=== PATIENT | female | born 1985 | race Caucasian/White ===

== ENCOUNTER 2016-06-22 17:47 | Emergency (ER) | payer SELFPAY ==
[2016-06-22 19:02] VITALS: RESP 18; O2SAT 100
[2016-06-22] MEDS ORDERED: Sodium Chloride 0.9% 1,000 ML IV ONE (20:51)
[2016-06-22] MEDS ORDERED: Sodium Chloride 0.9% 1,000 ML ONE (20:57)
--- NOTE | 2016-06-22 21:03 | C.PDOC ---
History Of Present Illness The patient, a 31 y/o female, presents to the emergency department for evaluation of abdominal pain which began yesterday. Patient states her pain is worse around her epigastric region and is association with nausea. She denies fever, chills, vomiting, and diarrhea. Time Seen by Provider: 06/22/16 20:47 Chief Complaint (Nursing): Abdominal Pain History Per: Patient History/Exam Limitations: no limitations Onset/Duration Of Symptoms: Hrs Current Symptoms Are (Timing): Still Present Location Of Pain/Discomfort: Epigastric Quality Of Discomfort: "Pain" Associated Symptoms: Nausea. denies: Fever, Chills, Vomiting, Diarrhea Additional History Per: Patient Past Medical History Reviewed: Historical Data, Nursing Documentation, Vital Signs Vital Signs: Last Vital Signs Temp 97.5 F L 06/22/16 19:00 Pulse 56 L 06/22/16 19:00 Resp 18 06/22/16 19:00 BP 124/75 06/22/16 19:00 Pulse Ox 100 06/22/16 21:25 - Medical History PMH: No Chronic Diseases Surgical History: No Surg Hx Family History: States: Unknown Family Hx - Social History Hx Alcohol Use: No Hx Substance Use: No - Immunization History Hx Tetanus Toxoid Vaccination: No Hx Influenza Vaccination: No Hx Pneumococcal Vaccination: No Review Of Systems Except As Marked, All Systems Reviewed And Found Negative. Constitutional: Negative for: Fever, Chills Gastrointestinal: Positive for: Nausea, Abdominal Pain (epigastric ). Negative for: Vomiting, Diarrhea Physical Exam - Physical Exam Appears: Non-toxic, No Acute Distress Skin: Normal Color, Warm, Dry Head: Atraumatic, Normacephalic Eye(s): bilateral: Normal Inspection Oral Mucosa: Moist Neck: Supple Chest: Symmetrical, No Deformity, No Tenderness Cardiovascular: Rhythm Regular, No Murmur Respiratory: Normal Breath Sounds, No Rales, No Rhonchi, No Wheezing Gastrointestinal/Abdominal: Tenderness (to epigastric region on palpation ), No Guarding, No Rebound Back: Normal Inspection, No Vertebral Tenderness, No Paraspinal Tenderness Extremity: Normal ROM, Capillary Refill (less than 2 seconds) Neurological/Psych: Oriented x3, Normal Speech Gait: Steady ED Course And Treatment - Laboratory Results Result Diagrams: 06/22/16 20:56 06/22/16 20:56 O2 Sat by Pulse Oximetry: 100 (on RA) Pulse Ox Interpretation: Normal Medical Decision Making Medical Decision Making: Impression: 31 y/o female c/o epigastric abdominal pain Plan: * labs * Protonix IV * Zofran IV * IV Fluids * reassess and disposition Progress Notes: labs ordered and reviewed. Patient received Protonix IV, Zofran IV and IV Fluids. 930: pt reassesed. labs unremarkable. abd soft. no ttp. no ruq ttp, no rlq ttp. no luekocytosis. pt asking for d/c. Disposition - Disposition Referrals: [facility] at [facility] [Outside] [facility] [Outside] James Yu MD [Staff Provider] - Disposition: HOME/ ROUTINE Disposition Time: 21:31 Condition: STABLE Additional Instructions: please follow up with your doctor. return to er with worsening symptoms or concerns. Prescriptions: Famotidine [Pepcid] 20 mg PO DAILY #20 tab Instructions: Acute Abdominal Pain (ED) Print Language: BRAZILIAN - Clinical Impression Clinical Impression: Abdominal pain - Scribe Statement The provider has reviewed the documentation as recorded by the Scribe (Daksha Lopez) Provider Attestation: All medical record entries made by the Scribe were at my direction and personally dictated by me. I have reviewed the chart and agree that the record accurately reflects my personal performance of the history, physical exam, medical decision making, and the department course for this patient. I have also personally directed, reviewed, and agree with the discharge instructions and disposition.
[2016-06-22 21:09] LABS: BASO # 0.1 K/uL (0.0-0.2); BASO % 0.6 % (0.0-2.0); EOS # 0.3 K/uL (0.0-0.7); EOS % 2.8 % (0.0-4.0); LYMPH # 3.9 K/uL (1.0-4.3); LYMPH % 39.4 % (20.0-40.0); MEAN CELL VOLUME 87.3 fL (81.0-99.0); MEAN CORPUSCULAR HEMOGLOBIN 29.2 pg (27.0-31.0); MEAN CORPUSCULAR HGB CONC 33.4 g/dL (33.0-37.0); MEAN PLATELET VOLUME 9.6 fL (7.2-11.7); MONO # 0.9 K/uL (0.0-0.8); MONO % 9.6 % (0.0-10.0); NRBC % 0.1 % (0.0-2.0); RBC URINE 1 /hpf (0-3); RED CELL DISTRIBUTION WIDTH 13.7 % (11.5-14.5); URINE BACTERIA RARE (<OCC); URINE BILIRUBIN NEGATIVE (NEGATIVE); URINE COLOR Straw (YELLOW); URINE GLUCOSE (UA) NORMAL (Normal); URINE KETONE NEGATIVE (NEGATIVE); URINE LEUKOCYTE ESTERASE NEG Leu/uL (Negative); URINE PROTEIN NEGATIVE (NEGATIVE); URINE UROBILINOGEN NORMAL mg/dL (0.2-1.0); WBC URINE < 1 /hpf (0-5); WHITE BLOOD COUNT 9.8 K/uL (4.8-10.8)
[2016-06-22 21:10] LABS: URINE BLOOD TRACE (NEGATIVE)
[2016-06-22 21:13] LABS: CHLORIDE 97 mmol/L (98-107)
[2016-06-22 21:14] LABS: POTASSIUM 3.4 mmol/L (3.6-5.2); SODIUM 141 mmol/L (132-148)
[2016-06-22 21:16] LABS: ALB/GLOB RATIO 1.1 (1.0-2.1); ALKALINE PHOSPHATASE 129 U/L (38-126); AST/SGOT 21 U/L (14-36); BILIRUBIN,TOTAL 0.2 mg/dL (0.2-1.3); BLOOD UREA NITROGEN 10 mg/dL (7-17); CARBON DIOXIDE 27 mmol/L (22-30); GFR AFRICAN-AMERICAN > 60; TOTAL PROTEIN 8.3 g/dL (6.3-8.3)
[2016-06-22 21:17] LABS: ALT/SGPT 22 U/L (9-52); GLUCOSE,RANDOM 86 mg/dL (65-105)
[2016-06-22 21:54] VITALS: BP 111/74; PULSE 68; TEMP 98.1
== END 2016-06-22 22:09 | disposition home or self-care (01) ==
LOC: MERGE 17:47 → C.ER 17:47
DX: R10.13 Epigastric pain (principal)
CPT/HCPCS: 80053; 81001; 83690; 84703; 85025; 85610; 85730; 96361; 96374; 96375; 99284; C9113; J2405; J7040

== ENCOUNTER 2016-10-26 09:07 | Day surgery (SDC) | payer SELFPAY ==
[2016-10-14 09:36] VITALS: BMI 26.4
[2016-10-26] MEDS ORDERED: Lactated Ringer's 1,000 ML IV ONE ×2 (13:26)
[2016-10-26] MEDS ORDERED: Midazolam 2 MG/2 ML VIAL ONE (13:39)
[2016-10-26] MEDS ORDERED: Morphine 4 MG/ML VIAL ONE (13:39)
[2016-10-26] MEDS ORDERED: Propofol 10 mg/ml Inj (20 ML) ONE (13:43)
[2016-10-26] MEDS ORDERED: HYDROmorphone 0.5 mg/0.5 ml ISec IVP PRN (14:04)
--- NOTE | 2016-10-26 14:07 | PCM.SURG1 ---
Surgeon's Initial Post Op Note - Surgeon's Notes Surgeon: Dr. Prabhakar Boiler Repairman: None Type of Anesthesia: General LMA Anesthesia Administered By: Dr. Muller Pre-Operative Diagnosis: 31 yo that came for menorrhagia, irregular mentrual cycle and chronic pelvic pain Operative Findings: av uterus with multiple polyp Post-Operative Diagnosis: Same as above Operation Performed: hysteroscopy myosure d and c Specimen/Specimens Removed: EMC,ECC, polyp Estimated Blood Loss: EBL {In ML}: 10 Blood Products Given: N/A Drains Used: No Drains Post-Op Condition: Good Date of Surgery/Procedure: 10/26/16 Time of Surgery/Procedure: 14:07
[2016-10-26] MEDS ORDERED: Lactated Ringer's 500 ML IV ONE (15:40)
[2016-10-26 16:16] VITALS: RESP 18; O2SAT 97
[2016-10-26 17:08] VITALS: BP 116/70; PULSE 65; TEMP 98
--- NOTE | 2016-10-27 09:29 | OP ---
PROCEDURE DATE: 10/26/2016 PREOPERATIVE DIAGNOSES: A 31-year-old female with history of menorrhagia, irregular menstrual period, endometrial polyp. POSTOPERATIVE DIAGNOSES: A 31-year-old female with history of menorrhagia, irregular menstrual period, endometrial polyp. PROCEDURE: Hysteroscopy and MyoSure D and C. SURGEON: Sandra Prabhakar MD TYPE OF ANESTHESIA: General LMA. ANESTHESIA ADMINISTERED BY: Dr. Seo. FINDINGS: An anteverted uterus, approximately 10 weeks' gestation, noted to have multiple endometrial polyps. ESTIMATED BLOOD LOSS: 10 mL. IV FLUIDS: 500 mL. *------*: 100 mL. COMPLICATIONS: None. SPECIMEN: EMC, ECC, and polyps. DESCRIPTION OF PROCEDURE: The patient was informed of the risks, benefits and alternatives of the procedure. Risk factors included infection, bleeding, damage to surrounding organs, tissue complications for anesthesia, and probability of . After informed consent, the patient was then taken to the operating room, prepped and draped in the normal sterile fashion, placed in dorsal lithotomy position. Weighted speculum was placed into the vagina. The anterior lip of the cervix was grasped with a single-tooth tenaculum. Uterus was gently sounded to approximately 10 cm. Upon complete dilation, the scope was then placed. A complete surveillance of the uterine cavity was then performed. *------* MyoSure was then activated and the endometrial polyp was removed *------*. Excellent hemostasis was noted. *------* of the scope was then removed and a proximal D and C was then performed. *------* pathology. The scope was then re-introduced making sure there were no areas of perforation upon complete surveillance. Instruments were then removed from the vagina. Instrument and sponge counts were correct x2. The patient was then taken to recovery in stable condition and instructed to follow up in the office in 2 weeks. Sandra Prabhakar MD
== END 2016-10-26 16:50 | disposition home or self-care (01) ==
LOC: C.SDS 09:07
PROVIDERS: ATTEND Obstetrics & Gynecology
DX: N84.0 Polyp of corpus uteri (principal); N92.0 Excessive and frequent menstruation with regular cycle
CPT/HCPCS: 58558; 88305; J2250; J2405; J2704; J3010; J7120

== ENCOUNTER 2018-02-21 07:46 | Day surgery (SDC) | payer OTHER ==
[2018-02-08 07:35] VITALS: BMI 27.3
[2018-02-21] MEDS ORDERED: Propofol 10 mg/ml Inj (20 ML) ONE ×2 (09:38→10:05)
[2018-02-21] MEDS ORDERED: Midazolam 2 MG/2 ML VIAL ONE (09:38)
--- NOTE | 2018-02-21 10:09 | PCM.SURG1 ---
Surgeon's Initial Post Op Note - Surgeon's Notes Surgeon: Dr. Nguyen Underground Roof Bolter: none Type of Anesthesia: General Endo, General LMA Pre-Operative Diagnosis: endometrial polyp, pelvic pain Operative Findings: uterus approx 9cm sized, anteverted, proliferative endometrium, possible polyp, otherwise normal anatomy Post-Operative Diagnosis: same Operation Performed: Hysteroscopy with MyoSure, fractional D&C Specimen/Specimens Removed: endometrial curettings, ECC, possible endometrial polyp Estimated Blood Loss: EBL {In ML}: 5 Blood Products Given: N/A Drains Used: No Drains Post-Op Condition: Good Date of Surgery/Procedure: 02/21/18 Time of Surgery/Procedure: 09:45
[2018-02-21] MEDS ORDERED: HYDROmorphone 0.5 mg/0.5 ml ISec IVP PRN (10:18)
[2018-02-21 10:38] VITALS: O2SAT 100
--- NOTE | 2018-02-21 11:08 | OP ---
PROCEDURE DATE: 02/21/2018 PREOPERATIVE DIAGNOSES: Endometrial polyp, pelvic pain. POSTOPERATIVE DIAGNOSES: Endometrial polyp, pelvic pain. SURGERY PERFORMED: Hysteroscopy with MyoSure and fractional dilation and curettage. SURGEON: Marcelle Nguyen MD PAINT ROLLER WINDER: None. TYPE OF ANESTHESIA: General endotracheal. INTRAOPERATIVE FINDINGS: Uterus is approximately 9 cm size, anteverted, proliferative endometrium, possible polyp. Otherwise, normal anatomy. SPECIMENS REMOVED: Endometrial curetting, ECC, and possible endometrial polyp. ESTIMATED BLOOD LOSS: 5 mL. BLOOD PRODUCTS GIVEN: None. DRAINS: None. POSTOPERATIVE CONDITION: Stable. ADDITIONAL COMMENTS: All lap counts and instrument counts were correct x2. DESCRIPTION OF PROCEDURE: After all relevant documentation was reviewed and signed by , the patient was taken back to the OR room. She was prepped and draped in the usual sterile fashion after being placed in lithotomy position. After bimanual examination, the bladder was drained and a weighted speculum was then introduced with the use of a right-angled retractor. Excellent visualization of the cervix was noted. The posterior lip of the cervix was then grabbed with a single-tooth tenaculum. The cervix was then gently serially dilated and so the hysteroscope was able to be introduced. Once inside, the above-mentioned findings were noted. The MyoSure was then used to remove part of the proliferative endometrium and the possible polyp. All instruments were removed and a gentle sharp curettage was then performed as well as ECC. Examination of the posterior lip of the cervix revealed some bleeding from the tenaculum site, which was made hemostatic with the use of Monsel solution. Once excellent hemostasis was confirmed, the weighted speculum was removed. The patient was awoken from anesthesia and was taken back to the recovery room in stable condition. Marcelle Nguyen MD
[2018-02-21 11:54] VITALS: RESP 16
[2018-02-22 00:14] VITALS: BP 114/61; PULSE 67; TEMP 97.8
== END 2018-02-21 12:43 | disposition home or self-care (01) ==
LOC: C.SDS 07:46
PROVIDERS: ATTEND Obstetrics & Gynecology
DX: N94.9 Unspecified condition associated with female genital organs and menstrual cycle (principal); N84.0 Polyp of corpus uteri
CPT/HCPCS: 58558; 88305; J2250; J2704; J3010